=== PATIENT | male | born 1945 | race Caucasian/White ===

== ENCOUNTER 2016-09-13 13:27 | Observation (INO) | payer MEDICARE ==
[~2016-09-13] VITALS: Ht 185.4 cm; Wt 105.2 kg
[2016-09-13 13:36] VITALS: BP 136/89; PULSE 80; RESP 18; TEMP 98.2; O2SAT 95
[2016-09-13 14:07] VITALS: O2SAT 100
[2016-09-13] MEDS ORDERED: SODIUM CHLORIDE 0.9% FLUSH 5 ML FLUSH IVF PRN (14:15)
--- NOTE | 2016-09-13 14:15 | PD ---
HPI Chief Complaint: Eye Problems/Injury Time Seen by Provider: 13:48 Travel History International Travel<30 days: No Contact w/Intl Traveler<30days: No Traveled to known affect area: No History of Present Illness HPI The patient is a 71-year-old male who presents to the emergency department for binocular diplopia and left-sided numbness. The patient states he developed left facial numbness and left arm numbness yesterday as well as binocular diplopia. The patient states if he closes one eye, his double vision resolves. The patient states the numbness and tingling to the left face and left arm have significantly improved. 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 The patient denies any history of previous TIA or CVA. He denied any weakness of the left side or right side. He denies any associated headache. Patient does have a history of hyperlipidemia, however, denies any history of known CAD, hypertension, TIA, CVA, or peripheral vascular disease. He denies any history diabetes. Patient's primary physician is Dr. Dk Moreno. PFSH Past Medical History Hx Anticoagulant Therapy: Yes (81 MG ASA) High Cholesterol: Yes Diminished Hearing: Yes (HEARING AIDES) Tetanus Vaccination: Unknown Influenza Vaccination: Yes Past Surgical History Surgical History: No Previous Surgery Social History Alcohol Use: Yes (1 TO 2 BEERS) Tobacco Use: No Substance Use: No Allergies-Medications (Allergen,Severity, Reaction): Coded Allergies: No Known Allergies (Verified , 09/13/16) Reported Meds & Prescriptions Reported Meds & Active Scripts Active Reported Vytorin (Ezetimibe-Simvastatin) 10-10 Mg Tab 1 Tab PO HS Review of Systems Except as stated in HPI: all other systems reviewed are Neg General / Constitutional: No: Fever Eyes: Positive: Diploplia Cardiovascular: No: Chest Pain or Discomfort Respiratory: No: Shortness of Breath Gastrointestinal: No: Nausea, Vomiting, Abdominal Pain Musculoskeletal: No: Weakness Neurologic: Positive: Paresthesia, Sensory Disturbance, No: Focal Abnormalities, Headache, Change in Mentation, Slurred Speech Physical Exam Narrative GENERAL: Awake, alert, pleasant 71-year-old male who appears his stated age and is in no acute respiratory distress. SKIN: Warm and dry. HEAD: Atraumatic. Normocephalic. EYES: Pupils equal and round. Pupils are 3 mm bilateral and reactive. EOMs are intact. Patient is able to see fingers at a distance of 2 feet without difficulty. ENT: No nasal bleeding or discharge. Mucous membranes pink and moist. NECK: Trachea midline. No JVD. CARDIOVASCULAR: Regular rate and rhythm. No murmur appreciated. RESPIRATORY: No accessory muscle use. Clear to auscultation. Breath sounds equal bilaterally. GASTROINTESTINAL: Abdomen soft, non-tender, nondistended. Hepatic and splenic margins not palpable. MUSCULOSKELETAL: No obvious deformities. No clubbing. No cyanosis. No edema. NEUROLOGICAL: Awake and alert. No obvious cranial nerve deficits. Motor grossly within normal limits. Normal speech. Slightly decreased sensation to soft touch in the left aspect of the face and the left leg, the arms or equal and symmetric. No drift of the upper or lower extremities. Smile symmetric. No dysarthria noted. PSYCHIATRIC: Appropriate mood and affect; insight and judgment normal. Data Data Last Documented VS Vital Signs Date Time Temp Pulse Resp B/P Pulse Ox O2 Delivery O2 Flow Rate FiO2 09/13/16 14:07 100 Room Air 09/13/16 13:53 80 16 09/13/16 13:36 98.2 136/89 Orders Electrocardiogram (09/13/16 14:04) Prothrombin Time / Inr (Pt) (09/13/16 14:04) Act Partial Throm Time (Ptt) (09/13/16 14:04) Complete Blood Count With Diff (09/13/16 14:04) Comprehensive Metabolic Panel (09/13/16 14:04) Creatine Kinase (Cpk) (09/13/16 14:04) Troponin I (09/13/16 14:04) Ct Brain W/O Iv Contrast(Rout) (09/13/16 14:04) Chest, Single Ap (09/13/16 14:04) Ecg Monitoring (09/13/16 14:04) Iv Access Insert/Monitor (09/13/16 14:04) Oximetry (09/13/16 14:04) Sodium Chloride 0.9% Flush (Ns Flush) (09/13/16 14:15) Aspirin Chew (Aspirin Chew) (09/13/16 15:30) Consult Neurology (09/13/16 ) Labs Laboratory Tests Test 09/13/16 14:19 White Blood Count 5.9 TH/MM3 Red Blood Count 4.92 MIL/MM3 Hemoglobin 14.9 GM/DL Hematocrit 44.4 % Mean Corpuscular Volume 90.3 FL Mean Corpuscular Hemoglobin 30.2 PG Mean Corpuscular Hemoglobin 33.5 % Concent Red Cell Distribution Width 12.7 % Platelet Count 253 TH/MM3 Mean Platelet Volume 7.7 FL Neutrophils (%) (Auto) 53.5 % Lymphocytes (%) (Auto) 36.1 % Monocytes (%) (Auto) 8.0 % Eosinophils (%) (Auto) 2.0 % Basophils (%) (Auto) 0.4 % Neutrophils # (Auto) 3.2 TH/MM3 Lymphocytes # (Auto) 2.1 TH/MM3 Monocytes # (Auto) 0.5 TH/MM3 Eosinophils # (Auto) 0.1 TH/MM3 Basophils # (Auto) 0.0 TH/MM3 CBC Comment DIFF FINAL Differential Comment Prothrombin Time 10.7 SEC Prothromb Time International 1.0 RATIO Ratio Activated Partial 25.4 SEC Thromboplast Time Sodium Level 140 MEQ/L Potassium Level 4.3 MEQ/L Chloride Level 105 MEQ/L Carbon Dioxide Level 27.2 MEQ/L Anion Gap 8 MEQ/L Blood Urea Nitrogen 17 MG/DL Creatinine 1.00 MG/DL Estimat Glomerular Filtration 73 ML/MIN Rate Random Glucose 133 MG/DL Calcium Level 8.9 MG/DL Total Bilirubin 0.5 MG/DL Aspartate Amino Transf 21 U/L (AST/SGOT) Alanine Aminotransferase 28 U/L (ALT/SGPT) Alkaline Phosphatase 76 U/L Total Creatine Kinase 154 U/L Troponin I LESS THAN 0.02 NG/ML Total Protein 7.4 GM/DL Albumin 3.7 GM/DL [facility] Medical Decision Making Medical Screen Exam Complete: Yes Emergency Medical Condition: Yes Medical Record Reviewed: Yes Interpretation(s) EKG reveals normal sinus rhythm with a rate of 75. Left anterior fascicular block. Last Impressions Head CT 09/13/161403 Signed Impressions: Service Date/Time: August 14:45 - CONCLUSION: No acute disease. Jose Dill Jr., MD Chest X-Ray 09/13/16 140 Signed Impressions: Service Date/Time: August 14:12 - CONCLUSION: Normal examination. Jose Dill Jr., MD Laboratory Tests Test 09/13/16 14:19 White Blood Count 5.9 TH/MM3 Red Blood Count 4.92 MIL/MM3 Hemoglobin 14.9 GM/DL Hematocrit 44.4 % Mean Corpuscular Volume 90.3 FL Mean Corpuscular Hemoglobin 30.2 PG Mean Corpuscular Hemoglobin 33.5 % Concent Red Cell Distribution Width 12.7 % Platelet Count 253 TH/MM3 Mean Platelet Volume 7.7 FL Neutrophils (%) (Auto) 53.5 % Lymphocytes (%) (Auto) 36.1 % Monocytes (%) (Auto) 8.0 % Eosinophils (%) (Auto) 2.0 % Basophils (%) (Auto) 0.4 % Neutrophils # (Auto) 3.2 TH/MM3 Lymphocytes # (Auto) 2.1 TH/MM3 Monocytes # (Auto) 0.5 TH/MM3 Eosinophils # (Auto) 0.1 TH/MM3 Basophils # (Auto) 0.0 TH/MM3 CBC Comment DIFF FINAL Differential Comment Prothrombin Time 10.7 SEC Prothromb Time International 1.0 RATIO Ratio Activated Partial 25.4 SEC Thromboplast Time Sodium Level 140 MEQ/L Potassium Level 4.3 MEQ/L Chloride Level 105 MEQ/L Carbon Dioxide Level 27.2 MEQ/L Anion Gap 8 MEQ/L Blood Urea Nitrogen 17 MG/DL Creatinine 1.00 MG/DL Estimat Glomerular Filtration 73 ML/MIN Rate Random Glucose 133 MG/DL Calcium Level 8.9 MG/DL Total Bilirubin 0.5 MG/DL Aspartate Amino Transf 21 U/L (AST/SGOT) Alanine Aminotransferase 28 U/L (ALT/SGPT) Alkaline Phosphatase 76 U/L Total Creatine Kinase 154 U/L Troponin I LESS THAN 0.02 NG/ML Total Protein 7.4 GM/DL Albumin 3.7 GM/DL Differential Diagnosis Differential diagnoses includes TIA, CVA, multiple sclerosis, transient focal deficit, hyponatremia, neuropathy. Narrative Course IV was established, labs were drawn and sent, and the patient was placed on cardiac telemetry monitoring and continuous pulse oximetry monitoring. Patient would not be a candidate for TPA as his symptoms started yesterday and have improved. Stat CT of the brain was ordered. CT the brain is negative. The patient was coverage specialist rn to aspirin. Laboratory evaluation is unremarkable. The patient may be suffering a cerebellar/occipital infarct with binocular diplopia and left-sided weakness. I discussed the patient with the on-call [facility], Dr. Nicolas, who agrees with 23 hour observation request consultation to neurology. Therefore, patient will be admitted for 23 hour observation in a routine consult was placed to neurology. Physician Communication Physician Communication I discussed the patient with Dr. Nicolas who agrees with 23 hour observation. Diagnosis Primary Impression: Binocular vision disorder with diplopia Additional Impression: TIA (transient ischemic attack) Qualified Code: G45.9 - Transient cerebral ischemia, unspecified type Admitting Information Admitting Physician Requests: Observation Condition: Stable Marcos Matt MD Sep 13, 2016 14:15
[2016-09-13 14:28] LABS: AUTOMATED NEUTROPHIL # 3.2 TH/MM3 (1.8-7.7); BASOPHIL % 0.4 % (0.0-2.0); EOSINOPHIL # 0.1 TH/MM3 (0-0.4); HEMATOCRIT 44.4 % (39.0-51.0); HEMO FLAGS DIFF FINAL; LYMPH % 36.1 % (9.0-44.0); LYMPHOCYTE # 2.1 TH/MM3 (1.0-4.8); MEAN CELL VOLUME 90.3 FL (80.0-100.0); MEAN CORPUSCULAR HEMOGLOBIN 30.2 PG (27.0-34.0); MEAN CORPUSCULAR HGB CONC 33.5 % (32.0-36.0); NEUT % 53.5 % (16.0-70.0); PLATELET COUNT 253 TH/MM3 (150-450); RED BLOOD COUNT 4.92 MIL/MM3 (4.50-5.90); RED CELL DISTRIBUTION WIDTH 12.7 % (11.6-17.2); WHITE BLOOD COUNT 5.9 TH/MM3 (4.0-11.0)
[2016-09-13 14:38] LABS: CHLORIDE 105 MEQ/L (98-107); POTASSIUM 4.3 MEQ/L (3.5-5.1); SODIUM (NA) 140 MEQ/L (136-145)
[2016-09-13 14:41] LABS: ANION GAP 8 MEQ/L (5-15); BICARBONATE 27.2 MEQ/L (21.0-32.0); BLOOD UREA NITROGEN 17 MG/DL (7-18)
--- NOTE | 2016-09-13 14:42 | RADHPO ---
EXAM DATE/TIME: 09/13/2016 14:12 [facility] COMPARISON: No previous studies available for comparison. INDICATIONS : Double vision, left side tingling, possible CVA. MEDICAL HISTORY : Hypercholesterolemia. SURGICAL HISTORY : None. ENCOUNTER: Initial ACUITY: 1 day PAIN SCORE: 0/10 LOCATION: chest FINDINGS: A single view of the chest demonstrates the lungs to be symmetrically aerated without evidence of mas s, infiltrate or effusion. The cardiomediastinal contours are unremarkable. Osseous structures are intact. CONCLUSION: Normal examination. Jose Dill Jr., MD on September 13, 2016 at 14:38 Board Certified Radiologist. This report was verified electronically.
[2016-09-13 14:43] LABS: APTT (PATIENT) 25.4 SEC (24.3-30.1); PROTHROMBIN TIME - PATIENT 10.7 SEC (9.8-11.6)
[2016-09-13 14:44] LABS: ALT (GPT) 28 U/L (12-78); AST (GOT) 21 U/L (15-37); GLOMERULAR FILTRATION RATE 73 ML/MIN (>89)
[2016-09-13 14:46] LABS: TOTAL BILIRUBIN ADULT 0.5 MG/DL (0.2-1.0)
[2016-09-13 14:47] LABS: ALKALINE PHOSPHATASE 76 U/L (45-117); CREATINE KINASE 154 U/L (39-308)
--- NOTE | 2016-09-13 15:03 | RADHPO ---
EXAM DATE/TIME: 09/13/2016 14:45 [facility] COMPARISON: No previous studies available for comparison. INDICATIONS : Double vision. Yesterday he also had left facial and arm numbness which have resolved. RADIATION DOSE: 60.51 CTDIvol (mGy) MEDICAL HISTORY : None SURGICAL HISTORY : None. ENCOUNTER: Initial ACUITY: 1 day PAIN SCALE: 0/10 LOCATION: cranial TECHNIQUE: Multiple contiguous axial images were obtained of the head. Using automated exposure control and adj ustment of the mA and/or kV according to patient size, radiation dose was kept as low as reasonably a chievable to obtain optimal diagnostic quality images. FINDINGS: CEREBRUM: The ventricles are normal for age. No evidence of midline shift, mass lesion, hemorrhage or acute in farction. No extra-axial fluid collections are seen. POSTERIOR FOSSA: The cerebellum and brainstem are intact. The 4th ventricle is midline. The cerebellopontine angle i s unremarkable. EXTRACRANIAL: The visualized portion of the orbits is intact. SKULL: The calvaria is intact. No evidence of skull fracture. CONCLUSION: No acute disease. Jose Dill Jr., MD on September 13, 2016 at 15:01 Board Certified Radiologist. This report was verified electronically.
[2016-09-13] MEDS ORDERED: VYTO10TA27 PO (15:12)
[2016-09-13] MEDS ORDERED: ASPIRIN 81 MG CHEW TAB CHEW ONE (15:30)
[2016-09-13] MEDS ORDERED: ONDANSETRON HCL 4 MG/2 ML VIAL IVP PRN (15:45)
[2016-09-13] MEDS ORDERED: SODIUM CHLORIDE 0.9% FLUSH 5 ML FLUSH FLUSH PRN (15:45)
[2016-09-13] MEDS ORDERED: NALOXONE HCL 0.4 MG/ML AMP IV PRN (15:45)
[2016-09-13] MEDS ORDERED: ACETAMINOPHEN 325 MG TAB PO PRN (15:45)
[2016-09-13] MEDS: SODIUM CHLOR 0.9% 1000 ML INJ 1,000 ML IV SCH (15:57)
[2016-09-13] MEDS: SODIUM CHLORIDE 0.9% FLUSH 5 ML FLUSH FLUSH SCH (15:57)
[2016-09-13 16:06] VITALS: BP 127/71; PULSE 76; RESP 18; O2SAT 96
[2016-09-13 17:04] VITALS: BP 146/69; PULSE 74; RESP 16; O2SAT 95
--- NOTE | 2016-09-13 18:19 | MB ---
cc: HARINI GALLO M.D., PATRICK DATE OF CONSULTATION: 09/13/2016 REASON FOR CONSULTATION: Possible stroke. 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 He is on the board. He started developing some tingling around the left side of the mouth down his arm and questionably into the leg. That resolved but he also had diplopia resolving with one eye closed which remained. The diplopia is ongoing still today. He notified his and hence, he came here for followup. He states that he may have had a DVT at one point in the left leg and he has some questionable pain in the right leg; hence, he is not sure if there is a DVT going on. It is not very clear. However, he denies any headache, chest pain, shortness of breath, any more numbness or any weakness. He has chronic neuropathy in the left leg due to some back issues he states. Disc disease. PAST MEDICAL HISTORY: 1. Hyperlipidemia. 2. Decreased hearing, wears hearing aids. SOCIAL HISTORY: Beers are one to two a day alcohol-[place]. No tobacco. No substance abuse. ALLERGIES: NONE REPORTED. CURRENT MEDICATIONS: 1. Vytorin. 2. A baby aspirin daily. PHYSICAL EXAMINATION: VITAL SIGNS: Temperature 98.2, pulse 74, respiratory rate 16, blood pressure 146/69, satting at 95% on room air. NECK: The neck is supple. No bruits. HEART: Regular. No murmurs, rubs or gallops. NEUROLOGICAL EXAMINATION: He is awake, alert, he is oriented and fluent. Pupils are reactive. There may be a mild asymmetry of the right eye compared to the left. Extraocular muscles seem intact but he has diplopia except extreme left gaze. Face is symmetrical. His tongue is midline. Facial sensation is normal. Normal speech. Motor - there is no drift. No leg lag. DTRs are 1+ upper, cannot elicit in the legs. Cerebellar testing is normal. Edqnna-[id number] - no past pointing. Gait is withheld. IMAGING STUDIES: Chest x-ray normal. Head CT: No acute disease. LABORATORY DATA: CBC is normal. Coag panel is normal. Chemistries: GFR is 73, glucose 133. IMPRESSION: Residual diplopia in a 71-year-old man likely consistent with an infarct, questionable DVT. RECOMMENDATIONS: 1. Recommend getting a complete stroke workup. 2. Will get an MRI of the brain. 3. MRA of the [place]. 4. Ultrasound of the carotids. 5. Echocardiogram. 6. Change him to Plavix. 7. Get a lipid panel. 8. Lovenox for DVT prophylaxis. 9. Physical therapy, occupational therapy, speech therapy evaluations. 10. Fluids. 11. Increase head of bed tomorrow morning. 12. Today I would keep him at bed rest. 13. Also, I will get ultrasound of the left leg just to make sure there is not a DVT; if there is, certainly he will be on anticoagulation. 14. If his workup is unremarkable, or he has a small stroke, will continue current recommendations. In any case, he may need to followup with ophthalmology as an outpatient as well. 15. Continue current care. MD NORMA Clemente/MERON /6:00 PM /6:08 PM
--- NOTE | 2016-09-13 19:17 | MH ---
cc: STERLING NICOLAS MD DATE OF ADMISSION 09/13/[address] Fuller REASON FOR ADMISSION Binocular diplopia and left-sided numbness. HISTORY OF PRESENT ILLNESS The patient is a very pleasant 70-year male with significant past history of hyperlipidemia and some hearing loss. As per patient, he was having left-sided numbness with diplopia while he was in a meeting. The numbness resolved, but his double vision did not and he came yesterday to check why he is still has diplopia. Yesterday he had some mild numbness of the left lower extremity, but as per him he is significant for his chronic neuropathy. There are no other associated symptoms. There is no headache, dizziness, nausea or vomiting. There is no new hearing problem. There is diplopia but no blurry vision. There was no weakness. The patient was evaluated by the ER physician because of the diplopia. He was recommended for admission. At present, the patient is seen in his room. only problem is the diplopia. There is no numbness and no weakness. PAST MEDICAL HISTORY 1. Hyperlipidemia. 2. Some hearing loss. MEDICATIONS 1. Aspirin every day. 2. Vitamins. ALLERGIES NO KNOWN DRUG ALLERGIES. REVIEW OF SYSTEMS As described in History of Present Illness, negative 10 systems. SOCIAL HISTORY Drinks one to two beers a week, does not smoke, drink or do any drugs. , lives with his . FAMILY HISTORY Noncontributory.. PHYSICAL EXAMINATION GENERAL: The patient is alert and oriented x3 well-built, well-nourished lying on bed without any apparent distress. VITAL SIGNS: Afebrile, pulse is 74. Respiratory rate 16, blood pressure 146/69, pulse of 95% on room air. HEENT: Head is Eyes negative conjunctival, no icterus. Questionable squint on looking when he looks at the front. Normal extraocular activity. NECK: Supple, negative increased JVD. CHEST: Clear to auscultation. CARDIOVASCULAR: S1, S2 audible, unable to hear any S3 gallop. GI: Abdomen soft, no organomegaly. Positive bowel sounds. MUSCULOSKELETAL/EXTREMITIES: No cyanosis or pedal edema appreciated. TEMPLATE INSPECTOR: Grossly intact. SKIN: Warm and moist. PSYCHIATRIC: Appropriate mood and affect. TEMPLATE INSPECTOR: Normal facial features, normal eye movement, normal tongue movement, normal power and tone of extremities. LABORATORY DATA CBC within normal limits. BMP shows random glucose 133 otherwise within normal limits. PT/INR within normal limits. IMAGING STUDIES CT head showed no acute disease. A chest x-ray shows normal examination. CARDIOLOGY STUDIES Echocardiogram was done which showed sinus rhythm at rate of 75 beats per minute without any acute ST-T wave changes. ASSESSMENT 1. Diplopia with left-sided numbness TIA/CVA. 2. Hearing loss. PLAN Admit to the floor. IV hydration. Aspirin. The patient is started on Plavix. Continue home medication. Lovenox for DVT prophylaxis. MRI/MRA head, 2-D echo, carotid ultrasound. We will start physical therapy. Appreciate neurology input. We will follow this workup. Discussed with the patient and at bedside. Further recommendation to follow as per patient progress. Sterling Nicolas MD JP/ /6:45 PM /7:01 PM
[2016-09-13 19:42] LABS: HDL CHOLESTEROL 47.7 MG/DL (40.0-60.0)
[2016-09-13 20:00] VITALS: BP 151/72; PULSE 70; PULSE 72; RESP 18; TEMP 96.5; O2SAT 96
[2016-09-13] MEDS: ENOXAPARIN SODIUM 40 MG/0.4 ML SYRINGE SQ SCH (21:22)
[2016-09-13] MEDS: EZETIMIBE 10 MG TAB PO SCH (21:23)
[2016-09-13] MEDS: PRAVASTATIN SOD 20 MG TAB PO SCH (21:23)
[2016-09-13] MEDS: CLOPIDOGREL 75 MG TAB PO SCH (21:24)
--- NOTE | 2016-09-13 21:30 | RADHPO ---
EXAM DATE/TIME: 09/13/2016 20:24 [facility] COMPARISON: No previous studies available for comparison. INDICATIONS : Cerebrovascular accident. MEDICAL HISTORY : Hypercholesterolemia. Hearing loss. Anticoagulant therapy, Aspirin. Herniated disc. SURGICAL HISTORY : None. ENCOUNTER: Initial ACUITY: 1 day PAIN SCORE: 0/10 LOCATION: Bilateral neck PEAK SYSTOLIC VELOCITIES (cm/sec): ICA/CCA RATIO: Right: 1.5 Left: 0.8 ICA: Right: 129 Left: 86 CCA: Right: 89 Left: 109 ECA: Right: 91 Left: 121 VERTEBRAL: Right: 51 antegrade Left: 41 antegrade Elevated flow velocities and ICA/CCA ratios have been found to correlate with increased degrees of vessel stenosis, calculated as percentage of diameter relative to a normal segment of distal ICA/CCA FINDINGS: RIGHT CAROTID: There is mild plaque at the carotid bulb region. No significant stenosis is visualized. The waveform s are within normal limits. LEFT CAROTID: There is mild plaque at the carotid bulb region. No significant stenosis is visualized. The waveform s are within normal limits. VERTEBRAL ARTERIES: Antegrade flow is seen in both vertebral arteries. MISCELLANEOUS: None. CONCLUSION: Mild plaque without a significant stenosis seen. Nash Garcia MD on September 13, 2016 at 21:28 Board Certified Radiologist. This report was verified electronically.
--- NOTE | 2016-09-13 21:31 | RADHPO ---
EXAM DATE/TIME: 09/13/2016 20:46 [facility] COMPARISON: No previous studies available for comparison. INDICATIONS : Bilateral leg swelling. MEDICAL HISTORY : Hypercholesterolemia. Hearing loss. Anticoagulant therapy, Aspirin. Herniated disc. SURGICAL HISTORY : None. ENCOUNTER: Initial ACUITY: 1 day PAIN SCORE: 0/10 LOCATION: Bilateral legs. TECHNIQUE: Venous ultrasound of the left and right leg was performed from the inguinal ligament to the proximal calf. Real-time, color Doppler and spectral tracing, compression and augmentation techniques were us ed. FINDINGS: RIGHT LEG: There is normal compressibility of the deep venous system from the inguinal region to the proximal ca lf. No echogenic clot is seen in the lumen of the common femoral, femoral, popliteal, and posterior tibial veins. There is a normal response of the venous system to proximal and distal augmentation an d respiration. LEFT LEG: There is normal compressibility of the deep venous system from the inguinal region to the proximal ca lf. No echogenic clot is seen in the lumen of the common femoral, femoral, popliteal, and posterior tibial veins. There is a normal response of the venous system to proximal and distal augmentation an d respiration. CONCLUSION: No DVT. Nash Garcia MD on September 13, 2016 at 21:29 Board Certified Radiologist. This report was verified electronically.
[2016-09-14] VITALS: BP 121/74; PULSE 67; RESP 20; TEMP 98.4; O2SAT 95
[2016-09-14] MEDS: SODIUM CHLOR 0.9% 1000 ML INJ 1,000 ML IV SCH ×3 (02:03→21:43)
[2016-09-14 04:00] VITALS: BP 122/74; PULSE 67; RESP 20; TEMP 96.8; O2SAT 95
[2016-09-14 06:44] LABS: AUTOMATED NEUTROPHIL # 2.4 TH/MM3 (1.8-7.7); BASOPHIL % 0.6 % (0.0-2.0); EOSINOPHIL # 0.1 TH/MM3 (0-0.4); EOSINOPHIL % 2.8 % (0.0-4.0); HEMATOCRIT 38.4 % (39.0-51.0); HEMO FLAGS DIFF FINAL; LYMPH % 43.8 % (9.0-44.0); LYMPHOCYTE # 2.2 TH/MM3 (1.0-4.8); MEAN CELL VOLUME 89.8 FL (80.0-100.0); MEAN CORPUSCULAR HEMOGLOBIN 31.3 PG (27.0-34.0); MEAN CORPUSCULAR HGB CONC 34.8 % (32.0-36.0); MONO % 7.3 % (0.0-8.0); NEUT % 45.5 % (16.0-70.0); PLATELET COUNT 187 TH/MM3 (150-450); RED BLOOD COUNT 4.27 MIL/MM3 (4.50-5.90); RED CELL DISTRIBUTION WIDTH 12.2 % (11.6-17.2); WHITE BLOOD COUNT 5.1 TH/MM3 (4.0-11.0)
[2016-09-14 06:52] LABS: POTASSIUM 3.8 MEQ/L (3.5-5.1)
[2016-09-14 07:33] LABS: BICARBONATE 27.2 MEQ/L (21.0-32.0)
[2016-09-14 08:00] VITALS: BP 145/80; PULSE 68; RESP 20; TEMP 97.2; O2SAT 94
--- NOTE | 2016-09-14 08:12 | HHI.PR ---
Subjective Remarks Patient's diplopia is improving as per patient No other complaint Review of system for 10 point system otherwise unremarkable Objective Objective Results - Vital Signs Date Time Temp Pulse Resp B/P Pulse Ox O2 Delivery O2 Flow Rate FiO2 09/14/16 04:00 96.8 67 20 122/74 95 09/14/16 00:00 98.4 67 20 121/74 95 09/13/16 20:00 72 09/13/16 20:00 96.5 70 18 151/72 96 09/13/16 17:04 74 09/13/16 17:04 74 16 146/69 95 Room Air 09/13/16 16:06 76 09/13/16 16:06 76 18 127/71 96 Room Air 09/13/16 14:07 100 Room Air 09/13/16 13:53 80 16 09/13/16 13:36 98.2 80 18 136/89 95 I/O 09/13/16 09/13/16 09/13/16 09/14/16 09/14/16 09/14/16 07:00 15:00 23:00 07:00 15:00 23:00 Intake Total 1480 ml 0 ml Balance 1480 ml 0 ml Intake Oral 480 ml 0 ml IV Total 1000 ml # Voids 2 1 # Bowel Movements 0 0 Result Diagram: 09/14/16 0610 09/14/16 0610 Other Results Laboratory Tests Test 09/13/16 09/14/16 14:19 06:10 White Blood Count 5.9 5.1 Red Blood Count 4.92 4.27 Hemoglobin 14.9 13.4 Hematocrit 44.4 38.4 Mean Corpuscular Volume 90.3 89.8 Mean Corpuscular Hemoglobin 30.2 31.3 Mean Corpuscular Hemoglobin 33.5 34.8 Concent Red Cell Distribution Width 12.7 12.2 Platelet Count 253 187 Mean Platelet Volume 7.7 7.9 Neutrophils (%) (Auto) 53.5 45.5 Lymphocytes (%) (Auto) 36.1 43.8 Monocytes (%) (Auto) 8.0 7.3 Eosinophils (%) (Auto) 2.0 2.8 Basophils (%) (Auto) 0.4 0.6 Neutrophils # (Auto) 3.2 2.4 Lymphocytes # (Auto) 2.1 2.2 Monocytes # (Auto) 0.5 0.4 Eosinophils # (Auto) 0.1 0.1 Basophils # (Auto) 0.0 0.0 CBC Comment DIFF FINAL DIFF FINAL Differential Comment Prothrombin Time 10.7 Prothromb Time International 1.0 Ratio Activated Partial 25.4 Thromboplast Time Sodium Level 140 144 Potassium Level 4.3 3.8 Chloride Level 105 109 Carbon Dioxide Level 27.2 27.2 Anion Gap 8 8 Blood Urea Nitrogen 17 14 Creatinine 1.00 0.87 Estimat Glomerular Filtration 73 86 Rate Random Glucose 133 95 Calcium Level 8.9 8.0 Total Bilirubin 0.5 Aspartate Amino Transf 21 (AST/SGOT) Alanine Aminotransferase 28 (ALT/SGPT) Alkaline Phosphatase 76 Total Creatine Kinase 154 Troponin I LESS THAN 0.02 Total Protein 7.4 Albumin 3.7 Triglycerides Level 256 Cholesterol Level 194 LDL Cholesterol 95 HDL Cholesterol 47.7 Cholesterol/HDL Ratio 4.06 Physical Exam Physical Exam GENERAL: The patient is alert and oriented x3 well-built, well-nourished lying on bed without any apparent distress. VITAL SIGNS: Reviewed HEENT: Head is atraumatic normocephalic Eyes negative conjunctival, no icterus. Normal extraocular activity. NECK: Supple, negative increased JVD. CHEST: Clear to auscultation. CARDIOVASCULAR: S1, S2 audible, unable to hear any S3 gallop. GI: Abdomen soft, no organomegaly. Positive bowel sounds. MUSCULOSKELETAL/EXTREMITIES: No cyanosis or pedal edema appreciated. OUTER DIAMETER GRINDER: Grossly intact. SKIN: Warm and moist. PSYCHIATRIC: Appropriate mood and affect. OUTER DIAMETER GRINDER: Normal facial features, normal eye movement, normal tongue movement, normal power and tone of extremities. A/P Assessment and Plan 1. Diplopia with left-sided numbness TIA/CVA. 2. Hearing loss. PLAN IV hydration. Aspirin and Plavix. Continue home medication. Lovenox for DVT prophylaxis. Awaiting MRI/MRA head, 2-D echo Reviewed carotid ultrasound report. Appreciate neurology input. We will follow this workup. Discussed with the patient Further recommendation to follow as per patient progress. After workup if is stable and may discharge home to be followed by primary care doctor and neurology as outpatient and also ophthalmology as outpatient. Discussed with patient he understood very well Anayeli Nicolas MD Sep 14, 2016 08:12
[2016-09-14] MEDS: CLOPIDOGREL 75 MG TAB PO SCH (08:22)
[2016-09-14] MEDS: SODIUM CHLORIDE 0.9% FLUSH 5 ML FLUSH FLUSH SCH ×2 (08:23→20:34)
[2016-09-14] MEDS ORDERED: ASPIRIN 81 MG CHEW TAB PO SCH (09:00)
[2016-09-14 09:29] LABS: HDL CHOLESTEROL 36.7 MG/DL (40.0-60.0)
--- NOTE | 2016-09-14 10:18 | RADHPO ---
EXAM DATE/TIME: 09/14/2016 09:42 [facility] COMPARISON: No previous studies available for comparison. INDICATIONS : Diplopia. MEDICAL HISTORY : None. SURGICAL HISTORY : None. ENCOUNTER: Initial ACUITY: 1 day PAIN SCORE: 0/10 LOCATION: cranial TECHNIQUE: Multiplanar, multisequence MRI of the brain was performed without contrast. FINDINGS: The T2 weighted images and diffusion restricted images demonstrate a subtle area of abnormal signal i n the posterior aspect of the right occipital cortex. This is quite small in size measuring only appr oximately 1 cm. There is no evidence of hemorrhage within this. There is no definite underlying mass evident within this. This would be most consistent with a very small area of cortical infarct. This w ould be subacute in duration. There some punctate areas of increased T2 signal in the white matter most consistent with minimal darren rovascular ischemic demyelinative change. The ventricles are normal in size and configuration. No extra-axial fluid collections are seen. No fi ndings to indicate acute intraparenchymal hemorrhage are present. The appearance of the posterior fossa is unremarkable. CONCLUSION: There is a very small area of abnormal signal in the posterior occipital cortex on the right suggesti ng a punctate acute cortical infarct. No other significant abnormality is seen. Margarito Fabian MD on September 14, 2016 at 10:11 Board Certified Radiologist. This report was verified electronically.
--- NOTE | 2016-09-14 10:34 | RADHPO ---
EXAM DATE/TIME: 09/14/2016 09:42 [facility] COMPARISON: MRI BRAIN W/O CONTRAST, September 14, 2016, 9:42. INDICATIONS : Diplopia MEDICAL HISTORY : None. SURGICAL HISTORY : None. ENCOUNTER: Initial ACUITY: 1 day PAIN SCORE: 0/10 LOCATION: cranial Please note a normal MRA of the brain does not entirely exclude the possibility of a small aneurysm, nor the possibility of distal intracranial vessel disease. TECHNIQUE: 3D time of flight MRA was performed. Source images, multiplanar STS MIP, and 3D volume MIP reconstru ctions were reviewed. FINDINGS: The distal internal carotid arteries are patent. The vertebrals are patent. The basilar is patent. 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 The exam demonstrates some patchy areas of narrowing in the MCA trifurcation proximally on the right suggesting intracranial atherosclerotic disease. The anterior and middle cerebral circulation is wide ly patent. The right posterior cerebral is not visualized and is likely occluded. The left posterior cerebral is patent. There some patchy narrowing at its distal left posterior cerebral branches again suggesting intracranial atherosclerotic disease. CONCLUSION: 1. 2 mm basilar tip aneurysm. 2. Nonvisualization of the right posterior cerebral suggesting it is occluded. 3. Patchy areas of narrowing in the anterior and posterior cerebral circulation suggesting intracrani al atherosclerotic disease. Margarito Fabian MD on September 14, 2016 at 10:26 Board Certified Radiologist. This report was verified electronically.
[2016-09-14 12:00] VITALS: BP 152/85; PULSE 68; RESP 20; TEMP 97.6; O2SAT 94
[2016-09-14 16:00] VITALS: BP 147/88; PULSE 77; RESP 20; TEMP 97.6; O2SAT 94
[2016-09-14] MEDS ORDERED: IOHEXOL 350 MG/ML 10 ML VIAL (for RAD DIAG) IV ONE (16:08)
--- NOTE | 2016-09-14 16:44 | EKG ---
Date Performed: 09/13/2016 Time Performed: 14:21:38 PTAGE: 71 years EKG: Sinus rhythm Left anterior fascicular block Borderline ECG NO PREVIOUS TRACING DOCTOR: Amandeep Preciado Interpretating Date/Time 09/14/2016 16:41:56
[2016-09-14] MEDS: ENOXAPARIN SODIUM 40 MG/0.4 ML SYRINGE SQ SCH (17:32)
--- NOTE | 2016-09-14 19:01 | EC ---
Study Study Date:09/14/2016 STUDY CONCLUSIONS SUMMARY LEFT VENTRICLE: The cavity size was normal. Systolic function was normal. The estimated ejection fraction was in the range of 55% to 60%. Although no diagnostic regional wall motion abnormality was identified, this possibility cannot be completely excluded on the basis of this study. Left ventricular diastolic function parameters were normal. If LV function is below 40, please consider prescribing an ACEI or ARB or document rationale for non-use. PROCEDURE DATA STUDY STATUS: Elective. Procedure: Transthoracic echocardiography. Image quality was good. Scanning was performed from the parasternal, apical, and subcostal acoustic windows. Study completion: The patient tolerated the procedure well. Transthoracic echocardiography. M-mode, complete 2D, complete spectral Doppler, and color Doppler. Patient status: Inpatient. CARDIAC ANATOMY LEFT VENTRICLE: The cavity size was normal. Systolic function was normal. The estimated ejection fraction was in the range of 55% to 60%. Although no diagnostic regional wall motion abnormality was identified, this possibility cannot be completely excluded on the basis of this study. Left ventricular diastolic function parameters were normal. AORTIC VALVE: Trileaflet; mildly thickened leaflets. Doppler: There was no stenosis. No significant regurgitation. MITRAL VALVE: The valve appears to be grossly normal. Doppler: There was no evidence for stenosis. Trace regurgitation. LEFT ATRIUM: The atrium was at the upper limits of normal in size. RIGHT VENTRICLE: The cavity size was normal. PULMONIC VALVE: Not well visualized. Doppler: There was no evidence for stenosis. No significant regurgitation. TRICUSPID VALVE: The valve appears to be grossly normal. Doppler: There was no evidence for stenosis. Trace regurgitation. PERICARDIUM: There was no pericardial effusion. BASIC MEASUREMENTS ADULT NORMAL Left ventricle LV internal dimension, ED, chordal level, *58.5 mm 43-52 PLAX LV internal dimension, ES, chordal level, *43.5 mm 23-38 PLAX Fractional shortening, chordal level, PLAX *26 % >29 LV posterior wall thickness, ED 8.98 mm IVS/LVPW ratio, ED 1.12 <1.3 Ventricular septum Septal thickness, ED 10.1 mm Aortic valve Leaflet separation *14 mm 15-26 Right ventricle RV internal dimension, ED, PLAX 30.6 mm 19-38 BASIC MEASUREMENTS ADULT NORMAL Aortic valve Leaflet separation *14 mm 15-26 Aorta Root diameter, ED 36 mm 20-37 Left atrium Anterior-posterior dimension, ES 38 mm 19-40 LA/aortic root ratio 1.06 DOPPLER MEASUREMENTS ADULT NORMAL Mitral valve Peak E-wave velocity 69.6 cm/s Peak A-wave velocity 75.5 cm/s Deceleration time 204 ms 150-230 Peak E/A ratio 0.9 LEGEND: Mean values are shown as u=mean value. Asterisk (*) montano values outside specified normal range. Prepared and signed by Swapnil Chávez [id number]
[2016-09-14 20:00] VITALS: BP 137/79; PULSE 77; RESP 18; TEMP 98; O2SAT 96
[2016-09-14] MEDS: PRAVASTATIN SOD 20 MG TAB PO SCH (20:33)
[2016-09-14] MEDS: EZETIMIBE 10 MG TAB PO SCH (20:33)
--- NOTE | 2016-09-14 21:09 | RADHPO ---
EXAM DATE/TIME: 09/14/2016 15:44 [facility] COMPARISON: MRI BRAIN W/O CONTRAST, September 14, 2016, 9:42. MRA BRAIN W/O CONTRAST, Aug, 9:42. INDICATIONS : Left sided numbness. Evaluate for aneurysm. IV CONTRAST: 80 cc Omnipaque 350 (iohexol) IV RADIATION DOSE: 42.61 CTDIvol (mGy) MEDICAL HISTORY : Carcinoma, squamous cell. SURGICAL HISTORY : None. ENCOUNTER: Initial ACUITY: 1 day PAIN SCALE: 0/10 LOCATION: cranial TECHNIQUE: Volumetric scanning was performed using a multi-row detector CT scanner. The data was post processed with a variety of visualization algorithms including full volume maximum intensity pr ojection, multi-planar sliding thin slab reformation, curved planar reformation, and surface renderin g techniques. Using automated exposure control and adjustment of the mA and/or kV according to patie nt size, radiation dose was kept as low as reasonably achievable to obtain optimal diagnostic quality images. FINDINGS: The internal carotid arteries are patent bilaterally. There is calcification seen at t he cavernous portions of the internal carotid arteries bilaterally but a significant stenosis is not seen. There is normal bifurcation into the anterior and middle cerebral arteries seen at the interna l carotid arteries bilaterally. The A1 segments are asymmetric with the right A1 segment being small er than the left side. Some variation can be seen. The A2 segments appear fairly symmetric. There is a patent anterior communicating artery. The basilar artery is formed from the two vertebral arteries. It primarily ends in the left posterio r cerebral artery. On the coronal images there is a 2 mm focal area of contrast enhancement represen ting either a minimal basilar tip aneurysm or potentially the origin of the right posterior cerebral artery with occlusion just beyond its origin. The mid and posterior aspects of the posterior cerebral artery are seen. These reconstitute through collaterals. The distal flow appears symmetric. CONCLUSION: 1. 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 There is reconstitution in the mid and po sterior aspects of the right posterior cerebral artery through the collaterals. 2. 2 mm focal area of contrast enhancement seen extending from the superior most aspect of the basila r artery representing either a small basilar tip artery aneurysm versus the proximal aspect of the ri ght posterior cerebral artery that is occluded just beyond its origin. Nash Garcia MD on September 14, 2016 at 20:28 Board Certified Radiologist. This report was verified electronically.
[2016-09-15] VITALS: BP 126/75; PULSE 66; RESP 20; TEMP 96.8; O2SAT 96
[2016-09-15 08:00] VITALS: BP 145/82; PULSE 65; RESP 18; TEMP 98.6; O2SAT 94
[2016-09-15] MEDS: CLOPIDOGREL 75 MG TAB PO SCH (08:47)
[2016-09-15] MEDS: SODIUM CHLORIDE 0.9% FLUSH 5 ML FLUSH FLUSH SCH (09:00)
--- NOTE | 2016-09-15 09:34 | HHI.PR ---
Subjective History of Present Illness Patient feel better diplopia better wants to go home today. Review of Systems Constitutional Constitutional Remarks All ROS Negative except diplopia and Morbid obesity. Vitals/Results Intake & Output 09/14/16 09/14/16 09/15/16 15:00 23:00 07:00 Intake Total 480 ml Balance 480 ml Intake Oral 480 ml # Voids 5 5 # Bowel Movements 0 0 Vital Signs Vital Signs Date Time Temp Pulse Resp B/P Pulse Ox O2 Delivery O2 Flow Rate FiO2 09/15/16 08:00 98.6 65 18 145/82 94 09/15/16 00:00 96.8 66 20 126/75 96 09/14/16 20:00 98.0 77 18 137/79 96 09/14/16 16:00 97.6 77 20 147/88 94 09/14/16 12:00 97.6 68 20 152/85 94 CBC/BMP: 09/14/16 0610 09/14/16 0610 Physical Exam General General Appearance: Well Developed, Well Nourished, No Acute Distress, Comfortable Appearance Remarks Morbid obesity. Eyes Eye Exam: Pupils Equal, Pupils Reactive, Sclera White, Extraocular Movement Intact Eye Remarks Diplopia Throat Throat Exam: Oral Mucosa [place] & Moist, Oral Pharynx Normal Neck Neck Exam: Neck Supple, Trachea Midline Pulmonary Resp Exam: Clear Bilaterally, Breath Sounds Equal, No Distress Cardiology CV Exam: Regular, Normal Sinus Rhythm, Good Perfusion Gastrointestinal/Abdomen GI Exam: Soft, Non-Tender, Bowel Sounds Present Musculoskeletal MS Exam: Joints Intact, Normal Tone, Good Strength Integumentary Skin Exam: Clear, Warm, Dry, Intact, Normal Turgor Neurologic Neuro Exam: Alert, Awake, Oriented, Speech Clear, Moving All Extremities Neuro Remarks Diplopia. VTE Prophylaxis VTE Prophylaxis Meds: Heparin PUD Prophylasis PUD Prophylaxis: Protonix Assessment/Plan Assessment/Plan ASSESSMENT 1. Diplopia with left-sided numbness TIA/CVA. 2. Hearing loss. 3. Morbid obesity. 4. Hyperlipidemia on Vytorin. PLAN on Plavix The patient is started on Plavix. Continue home medication. Lovenox for DVT prophylaxis. MRI/MRA head, 2-D echo, carotid ultrasound. MRI Brain show Acute Punctate area of infarction at Right posterior occipital cortex..2 mm Basilar tip Aneurysm..on Plavix 75 mg PO Daily.. We will start physical therapy. Appreciate neurology input. We will follow this workup. Discussed with the patient and at bedside. Ok to DC Home today. f/u with PCP/ Neurology 1 week. condition at discharge good. Activity as tolerated. Diet Cardic. Medicine see discharge medicine list. Scott Adkins MD Sep 15, 2016 09:34
[2016-09-15] MEDS ORDERED: PLAV75TA29 PO (12:17)
== END 2016-09-15 13:41 | disposition home or self-care (01) ==
LOC: PHED 13:27 → PHEDA 15:32 → PH3B 17:55
PROVIDERS: ADMIT Specialist; ATTEND Specialist
DX: G45.9 Transient cerebral ischemic attack, unspecified (principal); G62.9 Polyneuropathy, unspecified; E78.5 Hyperlipidemia, unspecified; E78.00 Pure hypercholesterolemia, unspecified; R94.31 Abnormal electrocardiogram [ECG] [EKG]; H91.90 Unspecified hearing loss, unspecified ear; E66.01 Morbid (severe) obesity due to excess calories
CPT/HCPCS: 70450; 70496; 70544; 70551; 71010; 80048; 80053; 80061; 82550; 84484; 85025; 85610; 85730; 93005; 93306; 93880; 93970; 99285; G0378; J1650; J7030; Q9967